=== PATIENT | female | born 1990 | race Caucasian/White ===

== ENCOUNTER 2022-02-25 11:20 | Inpatient (IN) | payer BC ==
[2022-02-25] MEDS ORDERED: OXYTOCIN 10 UNIT/ML 1 ML VIAL IM PRN (13:56)
[2022-02-25] MEDS ORDERED: LIDOCAINE 1% (PF) 10 MG/ML (30 ML SDV) SQ PRN (13:56)
[2022-02-25] MEDS ORDERED: TERBUTALINE 1 MG/ML VIAL SQ PRN (13:56)
[2022-02-25] MEDS ORDERED: METHYLERGONOVINE 0.2 MG/ML 1 ML AMP IM PRN (13:56)
[2022-02-25] MEDS ORDERED: CARBOPROST TROMETHAMINE 250 MCG/ML 1 ML AMP IM PRN (13:56)
[2022-02-25] MEDS ORDERED: LACTATED RINGERS 1,000 ML IV SCH (14:00)
[2022-02-25] MEDS ORDERED: OXYTOCIN 30 UNITS/500 ML NS 30 UNIT in SALINE 1 500ML.BAG IV SCH (14:00)
[2022-02-25 14:19] LABS: Basophils % (A) 0 %; Eosinophils % (A) 0 %; HCT 42.9 % (34.0-46.0); HGB 14.3 gm/dL (11.4-16.0); Lymphocytes # (A) 0.9 k/uL (1.0-4.8); Lymphocytes % (A) 7 %; MCH 31.8 pg (25.0-35.0); MCHC 33.4 g/dL (31.0-37.0); MCV 95.5 fL (80.0-100.0); Mean Platelet Volume 8.4; Monocytes # (A) 0.5 k/uL (0-1.0); Monocytes % (A) 4 %; Neutrophils # (A) 11.1 k/uL (1.3-7.7); Neutrophils % (A) 88 %; Platelet Count 167 k/uL (150-450); RBC 4.49 m/uL (3.80-5.40); WBC 12.6 k/uL (3.8-10.6)
[2022-02-25] MEDS: LACTATED RINGERS 1,000 ML IV SCH ×2 (14:23→14:52)
[2022-02-25] MEDS ORDERED: SODIUM CHLORIDE 0.9% 100 ML BAG ONE (14:34)
[2022-02-25] MEDS ORDERED: ROPIVACAINE 5MG/ML 20ML VIAL ONE (14:34)
[2022-02-25] MEDS ORDERED: fentaNYL (PF) 50 MCG/ML 5 ML AMP ONE (14:34)
--- NOTE | 2022-02-25 17:05 | P.HPOB ---
History of Present Illness H&P Date: 02/25/22 Chief Complaint: Contractions This is a 31-year-old female 1 para 0 with an estimated date of confinement of 02/20/2022, estimated gestational age of 40-5/7 weeks, who presents to labor and delivery with complaints of contractions that started yesterday morning and have become stronger and more regular. She denied any rupture of membranes. care has been with Dr. Chakraborty and has been uncomplicated per patient. labs: GC/Chlamydia/Trichomonas-negative Hepatitis B surface antigen-negative RPR-nonreactive Rubella-immune Blood type-O+ Antibody screen-negative HIV-nonreactive Hemoglobin-12.5 Toxoplasma screen-negative Random glucose-84 Obstetrical ultrasound-normal anatomy One hour Glucola-13 Group B streptococcus-negative Obstetrical history: Gynecologic history: No history of sexual transmitted diseases Social history: . Works part-time at the [employer]. Review of Systems Constitutional: Denies chills, Denies fever Eyes: denies blurred vision, denies pain Ears, nose, mouth and throat: Denies headache, Denies sore throat Cardiovascular: Denies chest pain, Denies shortness of breath Respiratory: Denies cough Gastrointestinal: Reports abdominal pain (Contractions) Genitourinary: Reports pelvic pain Musculoskeletal: Reports low back pain Integumentary: Denies pruritus, Denies rash Neurological: Denies numbness, Denies weakness Psychiatric: Reports anxiety Past Medical History Past Medical History: GERD/Reflux History of Any Multi-Drug Resistant Organisms: None Reported Past Surgical History: Cholecystectomy Additional Past Surgical History / Comment(s): wisdom teeth removed Past Anesthesia/Blood Transfusion Reactions: No Reported Reaction Past Psychological History: Anxiety Smoking Status: Never smoker Past Alcohol Use History: None Reported Past Drug Use History: None Reported - Past Family History Father Family Medical History: No Reported History Mother Family Medical History: Hypertension, Musculoskeletal Disorder Additional Family Medical History / Comment(s): muscular spasm disorder Medications and Allergies Home Medications Medication Instructions Recorded Confirmed Type Cetirizine HCl [Zyrtec] 10 mg PO DAILY 02/25/22 02/25/22 History FLUoxetine HCL [PROzac] 10 mg PO BID 02/25/22 02/25/22 History Pnv No.95/Ferrous Fum/Folic AC 1 each PO DAILY 02/25/22 02/25/22 History [ Multivitamin Tablet] Allergies Allergy/AdvReac Type Severity Reaction Status Date / Time No Known Allergies Allergy Verified 02/25/22 11:31 Exam Osteopathic Statement: *. No significant issues noted on an osteopathic structural exam other than those noted in the History and Physical/Consult. Vital Signs Temp Pulse Resp BP Pulse Ox 02/25/22 13:56 97.5 F L 90 16 120/66 99 02/25/22 11:31 97.7 F 97 16 128/75 99 Intake and Output 02/25/22 02/25/22 02/25/22 06:59 14:59 22:59 Intake Total 1999 Balance 1999 Intake: IV 1999 Other: # Voids 2 Weight 84.822 kg HEENT: Within normal limits Heart: Regular rate and rhythm Lungs: Clear to auscultation bilaterally Abdomen: Cervix: 7-8/70-80%/-2 station with bulging bag. Artificial rupture membranes is carried out with clear fluid noted. On arrival to triage she was initially 3- 1/2 cm and did make change to 4 cm over 1 hour and to 5 cm over 2 hours. Contractions: Every 2-3 minutes heart tones: Category 1 Extremities: Negative Homans Results Result Diagrams: 02/25/22 14:01 Abnormal Lab Results - Last 24 Hours (Table) 02/25/22 Range/Units 14:01 WBC 12.6 H (3.8-10.6) k/uL Neutrophils # 11.1 H (1.3-7.7) k/uL Lymphocytes # 0.9 L (1.0-4.8) k/uL Assessment and Plan (1) 40 weeks gestation of Current Visit: Yes Status: Acute Code(s): Z3A.40 - 40 WEEKS GESTATION OF SNOMED Code(s): 94196296 Plan: Admit for active labor. Expectant management. Epidural anesthesia. Oxytocin augmentation of labor if necessary.
--- NOTE | 2022-02-25 17:05 | P.MSEPDOC ---
Presenting Problems - Arrival Data Date of Arrival on Unit: 02/25/22 Time of Arrival on Unit: 11:34 Mode of Transport: Ambulatory - Complaint OB-Reason for Admission/Chief Complaint: Possible Onset of Labor Comment: ctx since 0200 5 min apart Medical History - Information : 1 Para: 0 Term: 0 : 0 Abortions: Spontaneous or Elective: 0 Number of Living Children: 0 - Gestational Age Gestational Age by VINCE (wks/days): 40 Weeks and 5 Days Review of Systems - Review of Systems Constitutional: No problems Breast: No problems ENT: No problems Cardiovascular: No problems Respiratory: No problems Gastrointestinal: No problems Genitourinary: No problems Musculoskeletal: No problems Neurological: No problems Skin: No problems Vital Signs - Temperature Temperature: 97.5 F Temperature Source: Temporal Artery Scan - Pulse Right Sitting Pulse Rate: 90 Pulse Assessment Method: Automatic Cuff - Respirations Respiratory Rate: 16 Oxygen Delivery Method: Room Air O2 Sat by Pulse Oximetry: 99 - Blood Pressure Right Arm Sitting Blood Pressure: 120/66 Blood Pressure Mean: 84 Blood Pressure Source: Automatic Cuff Medical Screen Scoring - Cervical Exam Dilation (cm): 4 Effacement (%): 80 Station: -2 Membranes: Intact - Uterine Contractions Frequency From (mins): 2 Frequency To (mins): 6 Duration From (seconds): 40 Duration To (seconds): 80 - Assessment - Baby A Baseline FHR: 130 Heart Rate - NICHD Category: Category I (Normal) Physician Notification - Physician Notified Physician Notified Date: 02/25/22 Physician Notified Time: 12:54 Physician: Meli Alva Order Received: Yes (monitor another hour and rcheck cervix) - Notification Comment Comment: [id number] Dr. Escoto called,made cervical change to 5cm, admit for labor, may have epidural Maternal Triage Index - Non-Urgent/Priority 4 Non-Urgent Priority 4: Yes Criteria Met for Priority 4: 40 5/7 contractions Disposition - Disposition OB Disposition: Admit, Triage I agree with the RN Medical Screening Exam: Yes Case reviewed; plan agreed upon as documented in EMR&OBIX.: Yes Diagnosis: ENCOUNTER FOR FULL-TERM UNCOMPLICATED DELIVERY
--- NOTE | 2022-02-25 23:26 | P.PROBDLV ---
Vaginal Delivery Note - . Vaginal Delivery Note: The patient progressed to complete dilation after oxytocin augmentation of labor and epidural anesthesia. Once reaching complete, she began pushing. That said came to a crown. With one further push, the 's head delivered across the perineum in a right occiput anterior lie followed by the anterior shoulder and nuchal right hand with one further push, the remainder of the easily delivered and was placed on mother's abdomen. Nose and mouth were bulb monroy ctioned. Cord was clamped and cut and infant was taken to warmer for evaluation. A viable male infant was noted with scores of 7 at 1 minute and 9 at 5 minutes and weight of 9 lbs. 0 oz. Placenta delivered shortly afterwards intact with a three-vessel cord. There was a large amount of clot that came out right after the placenta. Uterus initially contracted well after oxytocin was given and uterine massage was carried out. A gloved hand was placed within the endometrial cavity due to some increase in bleeding and several pieces of membrane and decidual-type tissue were removed. Uterus did firm up again at the lower uterine segment still felt slightly boggy. Several more passes with a gloved hand were placed into the endometrial cavity to remove blood clots and more decidual type tissue. Methergine 0.2 mg was given IM. Inspection of the perineum revealed a second-degree perineal laceration. This area was anesthetized with 1% lidocaine and then sutured with 3-0 and 2-0 Vicryl suture in the usual fashion. There was noted to be bilateral periurethral abrasions that were noted to be hemostatic. Estimated blood loss appeared to be approximately 600 mL's. Both mother and are in stable condition.
[2022-02-26] MEDS ORDERED: OXYTOCIN 30 UNITS/500 ML NS 30 UNIT in SALINE 1 500ML.BAG IV SCH (00:12)
[2022-02-26] MEDS ORDERED: diphenhydrAMINE 50 MG CAP PO PRN (00:12)
[2022-02-26] MEDS ORDERED: ZOLPIDEM 5 MG TAB PO PRN (00:12)
[2022-02-26] MEDS ORDERED: BENZOCAINE/MENTHOL SPRAY 1 GM/SPRAY AEROSOL TOPICAL PRN (00:12)
[2022-02-26] MEDS ORDERED: HYDROCORTISONE 2.5% RECTAL CREAM 30 GM TUBE RECTAL PRN (00:12)
[2022-02-26] MEDS ORDERED: diphenhydrAMINE 50 MG/ML 1 ML VIAL IVP PRN ×2 (00:12)
[2022-02-26] MEDS ORDERED: LANOLIN CREAM 5 GM TUBE TOPICAL PRN (00:12)
[2022-02-26] MEDS ORDERED: SIMETHICONE 80 MG CHEWABLE PO PRN (00:12)
[2022-02-26] MEDS ORDERED: diphenhydrAMINE 25 MG CAP PO PRN (00:12)
[2022-02-26] MEDS: IBUPROFEN 600 MG TAB PO PRN ×3 (00:56→20:10)
[2022-02-26] MEDS: ACETAMINOPHEN TAB 325 MG TAB PO PRN ×3 (04:43→17:40)
[2022-02-26 07:00] LABS: Basophils # (A) 0.1 k/uL (0-0.2); Basophils % (A) 0 %; Eosinophils % (A) 0 %; HCT 37.3 % (34.0-46.0); HGB 12.4 gm/dL (11.4-16.0); Lymphocytes # (A) 0.7 k/uL (1.0-4.8); Lymphocytes % (A) 4 %; MCH 31.7 pg (25.0-35.0); MCHC 33.3 g/dL (31.0-37.0); MCV 95.3 fL (80.0-100.0); Mean Platelet Volume 8.9; Monocytes # (A) 0.8 k/uL (0-1.0); Monocytes % (A) 4 %; Neutrophils # (A) 16.1 k/uL (1.3-7.7); Neutrophils % (A) 90 %; Platelet Count 164 k/uL (150-450); RBC 3.92 m/uL (3.80-5.40); RDW 13.6 % (11.5-15.5); WBC 17.8 k/uL (3.8-10.6)
--- NOTE | 2022-02-26 07:24 | P.PNOBGVD ---
Subjective - Subjective Principal diagnosis: S/P NVD PPD #1 Interval history: Pt seen and examined. Has not been able to void on her own yet due to vaginal swelling. Patient reports: Reports appetite normal, Reports pain well controlled, Reports ambulating normally [place]: doing well Objective - Latest Vital Signs Latest vital signs: Vital Signs Temp Pulse Resp BP Pulse Ox 02/26/22 04:00 98.6 F 72 16 98/60 02/26/22 01:20 90 16 123/69 02/26/22 00:42 104 H 16 100/69 02/26/22 00:20 95 16 98/56 02/26/22 00:05 90 16 102/59 02/25/22 23:50 104 H 16 100/69 02/25/22 23:35 93 16 103/62 02/25/22 23:20 98.0 F 101 H 16 109/65 02/25/22 17:05 97.5 F L 90 16 120/66 99 02/25/22 13:56 97.5 F L 90 16 120/66 99 02/25/22 11:31 97.7 F 97 16 128/75 99 Intake and Output 02/25/22 02/26/22 02/26/22 22:59 06:59 14:59 Intake Total 167 Output Total 800 1120 Balance -800 -953 Intake: Intake, IV Titration 167 Amount Oxytocin 30 Units/500 ml 167 Ns 30 unit In Saline 1 500ml.bag @ Per Protocol IV .Q0M [facility] Rx#:[id number] Output: Urine 800 300 Straight 300 Output, Quantitative 820 Blood Loss - Exam Lungs: bilateral: normal Chest: Normal S1, Normal S2 Extremities: Present: normal Abdomen: Present: normal appearance, soft Uterus: Present: normal, firm - Labs Labs: Abnormal Lab Results - Last 24 Hours (Table) 02/25/22 02/26/22 Range/Units 14:01 06:43 WBC 12.6 H 17.8 H (3.8-10.6) k/uL Neutrophils # 11.1 H 16.1 H (1.3-7.7) k/uL Lymphocytes # 0.9 L 0.7 L (1.0-4.8) k/uL Assessment and Plan (1) Status post normal vaginal delivery Current Visit: Yes Status: Acute Code(s): BKF7653 - SNOMED Code(s): 043368618 Plan: 1. continue pp care
[2022-02-26] MEDS: LORATADINE 10 MG TAB PO SCH (08:16)
[2022-02-26] MEDS: SENNOSIDES-DOCUSATE SODIUM 1 EACH TAB PO SCH ×2 (08:16→20:10)
[2022-02-26] MEDS: PRENATAL VIT-IRON-FOLIC ACID 1 EACH CAP PO SCH (08:16)
[2022-02-26] MEDS: FLUoxetine HCL 10 MG CAP PO SCH ×2 (08:16→21:06)
[2022-02-27] MEDS: IBUPROFEN 600 MG TAB PO PRN ×2 (05:52→12:37)
--- NOTE | 2022-02-27 07:20 | P.DS ---
Providers Date of admission: 02/25/22 13:46 Expected date of discharge: 02/27/22 Attending physician: Donna Chakraborty Primary care physician: Stated None - Discharge Diagnosis(es) (1) Status post normal vaginal delivery Current Visit: Yes Status: Acute Hospital Course: Patient presented in active labor. She underwent a normal vaginal delivery. course was uncomplicated. She denies nausea, vomiting, chest pain, shortness of breath or any calf pain. Patient will be discharged home day #1 in stable condition to follow-up with me in 6 weeks. Plan - Discharge Summary New Discharge Prescriptions: New Ibuprofen [Motrin] 600 mg PO Q6HR PRN #30 tab PRN Reason: Mild Pain (Scale 1 To 3) No Action FLUoxetine HCL [PROzac] 10 mg PO DAILY Cetirizine HCl [Zyrtec] 10 mg PO DAILY Pnv No.95/Ferrous Fum/Folic AC [ Multivitamin Tablet] 1 each PO DAILY Discharge Medication List Cetirizine HCl [Zyrtec] 10 mg PO DAILY 02/25/22 [History] FLUoxetine HCL [PROzac] 10 mg PO DAILY 02/25/22 [History] Pnv No.95/Ferrous Fum/Folic AC [ Multivitamin Tablet] 1 each PO DAILY 02/25/22 [History] Ibuprofen [Motrin] 600 mg PO Q6HR PRN #30 tab 02/27/22 [Rx] Follow up Appointment(s)/Referral(s): Donna Chakraborty DO [Doctor of Osteopathic Medicine] - 04/11/22 10:45 am Discharge Disposition: HOME SELF-CARE
[2022-02-27] MEDS: SENNOSIDES-DOCUSATE SODIUM 1 EACH TAB PO SCH (07:51)
[2022-02-27] MEDS: ACETAMINOPHEN TAB 325 MG TAB PO PRN ×3 (07:52→13:51)
[2022-02-27 08:43] VITALS: BP 109/65; PULSE 73; RESP 18; TEMP 97.4
[2022-02-27] MEDS: LORATADINE 10 MG TAB PO SCH (12:35)
[2022-02-27] MEDS: PRENATAL VIT-IRON-FOLIC ACID 1 EACH CAP PO SCH (12:35)
[2022-02-27] MEDS: FLUoxetine HCL 10 MG CAP PO SCH (12:35)
== END 2022-02-27 14:30 | disposition home or self-care (01) | DRG 807 ==
LOC: FBPOP 11:20 → 4FBP 13:46
PROVIDERS: ADMIT Obstetrics & Gynecology; ATTEND Obstetrics & Gynecology
PROC: 10E0XZZ Delivery of Products of Conception, External Approach (ICD-10-PCS; principal; 2022-02-25)
PROC: 0KQM0ZZ Repair Perineum Muscle, Open Approach (ICD-10-PCS; 2022-02-25)
PROC: 10907ZC Drainage of Amniotic Fluid, Therapeutic from Products of Conception, Via Natural or Artificial Opening (ICD-10-PCS; 2022-02-25)
PROC: 4A0HXCZ Measurement of Products of Conception, Cardiac Rate, External Approach (ICD-10-PCS; 2022-02-25)
PROC: 3E033VJ Introduction of Other Hormone into Peripheral Vein, Percutaneous Approach (ICD-10-PCS; 2022-02-25)
DX: O62.3 Precipitate labor (principal); Z37.0 Single live birth; O70.1 Second degree perineal laceration during delivery; F41.9 Anxiety disorder, unspecified; O99.62 Diseases of the digestive system complicating childbirth; K21.9 Gastro-esophageal reflux disease without esophagitis; O99.344 Other mental disorders complicating childbirth; Z3A.40 40 weeks gestation of pregnancy; Z79.899 Other long term (current) drug therapy; Z90.49 Acquired absence of other specified parts of digestive tract
CPT/HCPCS: 59025; 85025; 86850; 86900; 86901; 88307; 99213

== ENCOUNTER 2024-12-21 16:06 | Inpatient (IN) | payer BC ==
[2024-12-29] MEDS ORDERED: miSOPROStoL 200 MCG TAB RECTAL PRN (06:27)
[2024-12-29] MEDS ORDERED: TRANEXAMIC 1,000 MG/100ML-NACL 1,000 MG in EMPTY BAG 1 BAG IV PRN (06:27)
[2024-12-29] MEDS ORDERED: OXYTOCIN 10 UNIT/ML 1 ML VIAL IM PRN (06:27)
[2024-12-29] MEDS ORDERED: CARBOPROST TROMETHAMINE 250 MCG/ML 1 ML AMP IM PRN (06:27)
[2024-12-29] MEDS ORDERED: miSOPROStoL 200 MCG TAB PO PRN (06:27)
[2024-12-29] MEDS ORDERED: TERBUTALINE 1 MG/ML VIAL SQ PRN (06:27)
[2024-12-29] MEDS: LACTATED RINGERS 1,000 ML IV SCH (06:40)
[2024-12-29] MEDS: OXYTOCIN 30 UNITS/500 ML NS 30 UNIT in SALINE 1 500ML.BAG IV SCH (07:00)
[2024-12-29 07:25] LABS: Basophils % (A) 0 %; Eosinophils # (A) 0.1 k/uL (0-0.7); Eosinophils % (A) 1 %; HCT 39.1 % (34.0-46.0); HGB 12.7 gm/dL (11.4-16.0); Lymphocytes # (A) 1.5 k/uL (1.0-4.8); Lymphocytes % (A) 14 %; MCH 30.7 pg (25.0-35.0); MCHC 32.4 g/dL (31.0-37.0); MCV 94.9 fL (80.0-100.0); Mean Platelet Volume 8.3; Monocytes # (A) 0.5 k/uL (0-1.0); Monocytes % (A) 4 %; Neutrophils # (A) 8.4 k/uL (1.3-7.7); Neutrophils % (A) 79 %; Platelet Count 132 k/uL (150-450); RBC 4.12 m/uL (3.80-5.40); RDW 13.7 % (11.5-15.5); WBC 10.6 k/uL (3.8-10.6)
--- NOTE | 2024-12-29 08:06 | P.HPOB ---
History of Present Illness H&P Date: 12/29/24 Chief Complaint: induction of labor 34 year old presented at 41 weeks and 1 day. Her cervix is 2-3/80/-2. She is shelbi irregularly. heart tones category 1. Review of Systems All systems: negative Constitutional: Denies chills, Denies fever Eyes: denies blurred vision, denies pain Ears, nose, mouth and throat: Denies headache, Denies sore throat Cardiovascular: Denies chest pain, Denies shortness of breath Respiratory: Denies cough Gastrointestinal: Denies abdominal pain, Denies diarrhea, Denies nausea, Denies vomiting Genitourinary: Denies dysuria, Denies hematuria Musculoskeletal: Denies myalgias Integumentary: Denies pruritus, Denies rash Neurological: Denies numbness, Denies weakness Psychiatric: Denies anxiety, Denies depression Endocrine: Denies fatigue, Denies weight change Past Medical History Past Medical History: GERD/Reflux History of Any Multi-Drug Resistant Organisms: None Reported Past Surgical History: Cholecystectomy Additional Past Surgical History / Comment(s): wisdom teeth removed Past Anesthesia/Blood Transfusion Reactions: No Reported Reaction Past Psychological History: Anxiety, Depression Smoking Status: Never smoker Past Alcohol Use History: None Reported Past Drug Use History: None Reported - Past Family History Father Family Medical History: No Reported History Mother Family Medical History: Hypertension, Musculoskeletal Disorder Additional Family Medical History / Comment(s): muscular spasm disorder Medications and Allergies Home Medications Medication Instructions Recorded Confirmed Type Cetirizine HCl [Zyrtec] 10 mg PO DAILY 02/25/22 12/29/24 History FLUoxetine HCL [PROzac] 20 mg PO DAILY 02/25/22 12/29/24 History Pnv No.95/Ferrous Fum/Folic AC 1 each PO DAILY 02/25/22 12/29/24 History [ Multivitamin Tablet] Ergocalciferol [Vitamin D2 (1250 1 capsule PO DAILY 12/29/24 12/29/24 History Mcg = 08045 Iu)] Magnesium Oxide [Magnesium] 1 capsule PO DAILY 12/29/24 12/29/24 History Allergies Allergy/AdvReac Type Severity Reaction Status Date / Time No Known Allergies Allergy Verified 12/29/24 06:24 Exam Osteopathic Statement: *. No significant issues noted on an osteopathic structural exam other than those noted in the History and Physical/Consult. Vital Signs Temp Pulse Resp BP Pulse Ox 12/29/24 06:24 98.5 F 96 17 111/63 100 Intake and Output 12/28/24 12/29/24 12/29/24 22:59 06:59 14:59 Other: Weight 81.647 kg Heart: Regular rate and rhythm Lungs: Clear to auscultation bilaterally Abdomen: Soft, nontender Extremities: Negative Homans sign Results Result Diagrams: 12/29/24 06:46 Abnormal Lab Results - Last 24 Hours (Table) 12/29/24 Range/Units 06:46 Plt Count 132 L (150-450) k/uL Neutrophils # 8.4 H (1.3-7.7) k/uL Assessment and Plan (1) Encounter for induction of labor Current Visit: Yes Status: Acute Code(s): Z34.90 - ENCNTR FOR SUPRVSN OF NORMAL , UNSP, UNSP TRIMESTER SNOMED Code(s): 326256705 (2) Post term , 41 weeks Current Visit: Yes Status: Acute Code(s): O48.0 - POST-TERM ; Z3A.41 - 41 WEEKS GESTATION OF SNOMED Code(s): 65712165732266 Plan: 1. induction of labor with amniotomy and pitocin 2. anticipate normal vaginal delivery
[2024-12-29] MEDS: BUTORPHANOL 1 MG/ML 1 ML VIAL IV PRN (09:15)
[2024-12-29] MEDS ORDERED: SODIUM CHLORIDE 0.9% 250 ML BAG ONE (10:48)
[2024-12-29] MEDS ORDERED: fentaNYL (PF) 50 MCG/ML 5 ML AMP ONE (10:48)
[2024-12-29] MEDS ORDERED: ROPIVACAINE 5 MG/ML 30 ML VIAL ONE (10:48)
[2024-12-29] MEDS ORDERED: HYDROCORTISONE 2.5% RECTAL CREAM 30 GM TUBE RECTAL PRN (13:24)
[2024-12-29] MEDS ORDERED: diphenhydrAMINE 50 MG/ML 1 ML VIAL IVP PRN ×2 (13:24)
[2024-12-29] MEDS ORDERED: SIMETHICONE 80 MG CHEWABLE PO PRN (13:24)
[2024-12-29] MEDS ORDERED: ZOLPIDEM 5 MG TAB PO PRN (13:24)
[2024-12-29] MEDS ORDERED: diphenhydrAMINE 50 MG CAP PO PRN (13:24)
[2024-12-29] MEDS ORDERED: diphenhydrAMINE 25 MG CAP PO PRN (13:24)
[2024-12-29] MEDS ORDERED: BENZOCAINE/MENTHOL SPRAY 1 GM/SPRAY AEROSOL TOPICAL PRN (13:24)
[2024-12-29] MEDS ORDERED: LANOLIN CREAM 1 GM TUBE TOPICAL PRN (13:24)
[2024-12-29] MEDS: LIDOCAINE 0.5% (PF) 5 MG/ML (50 ML SDV) SQ PRN (13:27)
[2024-12-29] MEDS: METHYLERGONOVINE 0.2 MG/ML 1 ML AMP IM PRN (13:28)
[2024-12-29] MEDS ORDERED: OXYTOCIN 30 UNITS/500 ML NS 30 UNIT in SALINE 1 500ML.BAG IV SCH (13:30)
[2024-12-29 13:59] VITALS: RESP 16
[2024-12-29] MEDS: SENNOSIDES-DOCUSATE SODIUM 1 EACH TAB PO SCH (21:06)
[2024-12-29] MEDS: IBUPROFEN 800 MG TAB PO SCH (21:17)
[2024-12-30] MEDS: ACETAMINOPHEN TAB 500 MG TAB PO SCH (02:13)
[2024-12-30 06:51] LABS: Basophils # (A) 0.1 k/uL (0-0.2); Basophils % (A) 0 %; Eosinophils # (A) 0.1 k/uL (0-0.7); Eosinophils % (A) 1 %; HCT 36.2 % (34.0-46.0); HGB 11.5 gm/dL (11.4-16.0); Lymphocytes # (A) 1.8 k/uL (1.0-4.8); Lymphocytes % (A) 11 %; MCH 30.7 pg (25.0-35.0); MCHC 31.9 g/dL (31.0-37.0); MCV 96.2 fL (80.0-100.0); Mean Platelet Volume 8.6; Monocytes # (A) 0.9 k/uL (0-1.0); Monocytes % (A) 5 %; Neutrophils # (A) 13.7 k/uL (1.3-7.7); Neutrophils % (A) 82 %; Platelet Count 136 k/uL (150-450); RBC 3.76 m/uL (3.80-5.40); RDW 13.5 % (11.5-15.5); WBC 16.7 k/uL (3.8-10.6)
--- NOTE | 2024-12-30 08:19 | P.PROBDLV ---
Vaginal Delivery Note - . Vaginal Delivery Note: Date of Service: 12-29-2024 34 year old presented at 41 weeks and 1 day. Her cervix is 2-3/80/-2. She is shelbi irregularly. heart tones category 1. Pitocin was started and amniotomy performed at 7:23 AM, thin meconium fluid noted. The patient was quickly uncomfortable and did get an epidural. heart tones remained category 1. Cervix was completely dilated at 1258. Patient pushed, delivered a viable male infant over intact perineum under epidural anesthesia at 1305. Numbered OA, anterior shoulder delivered gentle downward guidance followed by posterior shoulder and rest of body. Nose and mouth bulb suction, clear clamped and cut, infant placed later's abdomen. Apgars 8, 9, weight 8 pounds 3 ounces. Placenta delivered spontaneously, intact three-vessel cord at 1310. Vagina, cervix, perineum were inspected. First-degree midline laceration was repaired with 3-0 Vicryl. Estimated blood loss 200 mL. Mother and baby in stable condition.
[2024-12-30 08:20] VITALS: BP 104/66; PULSE 61; TEMP 97.7
--- NOTE | 2024-12-30 08:21 | P.DS ---
Providers Date of admission: 12/29/24 06:11 Expected date of discharge: 12/30/24 Attending physician: Donna Chakraborty Primary care physician: Stated None - Discharge Diagnosis(es) (1) Encounter for induction of labor Current Visit: Yes Status: Resolved (2) Post term , 41 weeks Current Visit: Yes Status: Resolved (3) Status post normal vaginal delivery Current Visit: No Status: Acute Hospital Course: Presented for induction of labor. Patient underwent a normal vaginal delivery. course has been uneventful. She denies nausea, vomiting, chest pain, shortness of breath and calf pain. Patient will be discharged home day #1 in stable condition to follow-up with me in 6 weeks. Plan - Discharge Summary New Discharge Prescriptions: New Ibuprofen [Motrin] 800 mg PO Q8HR #30 tab No Action FLUoxetine HCL [PROzac] 20 mg PO DAILY Ergocalciferol [Vitamin D2 (1250 Mcg = 29985 Iu)] 1 capsule PO DAILY Magnesium Oxide [Magnesium] 1 capsule PO DAILY Cetirizine HCl [Zyrtec] 10 mg PO DAILY Pnv No.95/Ferrous Fum/Folic AC [ Multivitamin Tablet] 1 each PO DAILY Discharge Medication List Cetirizine HCl [Zyrtec] 10 mg PO DAILY 02/25/22 [History] FLUoxetine HCL [PROzac] 20 mg PO DAILY 02/25/22 [History] Pnv No.95/Ferrous Fum/Folic AC [ Multivitamin Tablet] 1 each PO DAILY 02/25/22 [History] Ergocalciferol [Vitamin D2 (1250 Mcg = 65553 Iu)] 1 capsule PO DAILY 12/29/24 [History] Magnesium Oxide [Magnesium] 1 capsule PO DAILY 12/29/24 [History] Ibuprofen [Motrin] 800 mg PO Q8HR #30 tab 12/30/24 [Rx] Follow up Appointment(s)/Referral(s): Donna Chakraborty DO [Doctor of Osteopathic Medicine] - 02/10/25 1:15 pm Discharge Disposition: HOME SELF-CARE
== END 2024-12-30 13:45 | disposition home or self-care (01) | DRG 807 ==
LOC: 4FBP 12-29 06:11
PROVIDERS: ADMIT Obstetrics & Gynecology; ATTEND Obstetrics & Gynecology
PROC: 10907ZC Drainage of Amniotic Fluid, Therapeutic from Products of Conception, Via Natural or Artificial Opening (ICD-10-PCS; principal; 2024-12-29)
PROC: 10E0XZZ Delivery of Products of Conception, External Approach (ICD-10-PCS; principal; 2024-12-29)
PROC: 0HQ9XZZ Repair Perineum Skin, External Approach (ICD-10-PCS; principal; 2024-12-29)
PROC: 3E033VJ Introduction of Other Hormone into Peripheral Vein, Percutaneous Approach (ICD-10-PCS; principal; 2024-12-29)
DX: O48.0 Post-term pregnancy (principal); Z37.0 Single live birth; O99.344 Other mental disorders complicating childbirth; F32.A Depression, unspecified; O70.0 First degree perineal laceration during delivery; O77.0 Labor and delivery complicated by meconium in amniotic fluid; F41.9 Anxiety disorder, unspecified; Z3A.41 41 weeks gestation of pregnancy; Z79.899 Other long term (current) drug therapy
CPT/HCPCS: 85025; 86850; 86900; 86901

== ENCOUNTER → 2025-01-07 | Outpatient (CLI) | payer BC ==
[2025-01-07 14:50] LABS: Basophils # (A) 0.06 X 10*3/uL (0.00-0.10); Basophils % (A) 0.7 %; Eosinophils # (A) 0.15 X 10*3/uL (0.04-0.35); Eosinophils % (A) 1.8 %; HCT 35.1 % (37.2-46.3); HGB 11.7 g/dL (12.0-15.0); Lymphocytes # (A) 1.08 X 10*3/uL (0.90-5.00); Lymphocytes % (A) 12.7 %; MCH 31.1 pg (27.0-32.0); MCHC 33.3 g/dL (32.0-37.0); MCV 93.4 FL (80.0-97.0); Monocytes # (A) 0.56 X 10*3/uL (0.20-1.00); Monocytes % (A) 6.6 %; NRBC Per 100 WBC 0 X 10*3/uL (0.00-0.01); Neutrophils # (A) 6.48 X 10*3/uL (1.80-7.70); Neutrophils % (A) 76.4 %; Platelet Count 292 X 10*3/uL (140-440); RBC 3.76 X 10*6/uL (4.10-5.20); RDW 12.6 % (11.5-14.5); WBC 8.48 X 10*3/uL (4.50-10.00)
== END | disposition home or self-care (01) ==
LOC: LABPAT 11:25
PROVIDERS: ATTEND Obstetrics & Gynecology
DX: Z01.812 Encounter for preprocedural laboratory examination (principal); O73.0 Retained placenta without hemorrhage
CPT/HCPCS: 85025

== ENCOUNTER 2025-01-08 11:03 | Day surgery (SDC) | payer BC ==
--- NOTE | 2025-01-08 07:57 | P.HPOB ---
History of Present Illness H&P Date: 01/08/25 Chief Complaint: retained placenta 34-year-old presents several days after vaginal delivery with manual removal of the placenta. Yesterday she had an ultrasound that showed a 4 cm piece of placenta still left inside. Patient has had some bleeding and intense cramping. She presents today for a D&C. Review of Systems All systems: negative Constitutional: Denies chills, Denies fever Eyes: denies blurred vision, denies pain Ears, nose, mouth and throat: Denies headache, Denies sore throat Cardiovascular: Denies chest pain, Denies shortness of breath Respiratory: Denies cough Gastrointestinal: Denies abdominal pain, Denies diarrhea, Denies nausea, Denies vomiting Genitourinary: Denies dysuria, Denies hematuria Musculoskeletal: Denies myalgias Integumentary: Denies pruritus, Denies rash Neurological: Denies numbness, Denies weakness Psychiatric: Denies anxiety, Denies depression Endocrine: Denies fatigue, Denies weight change Past Medical History Past Medical History: GERD/Reflux Additional Past Medical History / Comment(s): vag. del. 12/29 MPH, has retained placenta, having some vag. bleeding but not heavy per pt. History of Any Multi-Drug Resistant Organisms: None Reported Past Surgical History: Cholecystectomy Additional Past Surgical History / Comment(s): wisdom teeth removed Past Anesthesia/Blood Transfusion Reactions: No Reported Reaction Smoking Status: Never smoker - Past Family History Father Family Medical History: No Reported History Mother Family Medical History: Hypertension, Musculoskeletal Disorder Additional Family Medical History / Comment(s): muscular spasm disorder Medications and Allergies Home Medications Medication Instructions Recorded Confirmed Type Cetirizine HCl [Zyrtec] 10 mg PO DAILY 02/25/22 01/07/25 History FLUoxetine HCL [PROzac] 20 mg PO DAILY 02/25/22 01/07/25 History Pnv No.95/Ferrous Fum/Folic AC 1 each PO DAILY 02/25/22 01/07/25 History [ Multivitamin Tablet] Ergocalciferol [Vitamin D2 (1250 1 capsule PO DAILY 12/29/24 01/07/25 History Mcg = 45412 Iu)] Magnesium Oxide [Magnesium] 1 capsule PO DAILY 12/29/24 01/07/25 History Ibuprofen [Motrin] 800 mg PO Q8HR PRN 01/07/25 01/07/25 History Allergies Allergy/AdvReac Type Severity Reaction Status Date / Time No Known Allergies Allergy Verified 01/07/25 11:38 Exam Osteopathic Statement: *. No significant issues noted on an osteopathic structural exam other than those noted in the History and Physical/Consult. Heart: Regular rate and rhythm Lungs: Clear to auscultation bilaterally Abdomen: Soft, nontender Extremities: Negative Homans sign Assessment and Plan (1) Retained placenta Status: Acute Code(s): O73.0 - RETAINED PLACENTA WITHOUT HEMORRHAGE SNOMED Code(s): 112882496 Plan: 1. D&C
[~2025-01-08 11:03] MED LIST: Pre Op ABX Message 1 EACH MISC MISCELLANE ONE
[2025-01-08] MEDS: IV FLUID CONTINUATION 1,000 ML IV ONE (11:32)
[2025-01-08] MEDS: LACTATED RINGERS 1,000 ML BAG IV STA (11:46)
[2025-01-08] MEDS: DEXAMETHASONE SOD PHOSPHATE 4 MG/ML 1 ML VIAL IVP STA (11:51)
[2025-01-08] MEDS: ONDANSETRON 4 MG/2 ML VIAL IVP STA (11:52)
[2025-01-08] MEDS: FAMOTIDINE 20 MG/2 ML VIAL IV STA (11:53)
[2025-01-08] MEDS ORDERED: PROPOFOL 10 MG/ML 20 ML VIAL IV ONE (12:34)
[2025-01-08] MEDS ORDERED: METHYLERGONOVINE 0.2 MG/ML 1 ML AMP ONE (12:34)
[2025-01-08] MEDS ORDERED: fentaNYL (PF) 50 MCG/ML 2 ML AMP ONE (12:34)
[2025-01-08] MEDS ORDERED: LIDOCAINE 1% INJ 10MG/ML (20 ML MDV) ONE (12:34)
[2025-01-08] MEDS ORDERED: KETOROLAC 30 MG/ML 1 ML VIAL ONE (12:34)
[2025-01-08] MEDS ORDERED: MIDAZOLAM 2 MG/2 ML VIAL ONE (12:34)
--- NOTE | 2025-01-08 13:12 | P.OP ---
Date of Procedure: 01/08/25 Preoperative Diagnosis: retained placenta Postoperative Diagnosis: retained placenta Procedure(s) Performed: d&C Anesthesia: MAC Surgeon: Donna Chakraborty Estimated Blood Loss (ml): 100 IV fluids (ml): 500 Urine output (ml): 50 Pathology: other (placental tissue) Condition: stable Disposition: PACU Operative Findings: large amount of placental tissue. uterus enlarged, cervix dilated 1cm Description of Procedure: Patient was taken the operating room general anesthesia was obtained without difficulty. She is prepped draped normal sterile fashion in dorsal lithotomy position, legs placed in candycane stirrups. Bladder was drained of all urine. Weighted speculum placed in vagina the anterior lip of the cervix was grasped with single-tooth tenaculum. Cervix was found to be dilated already to 1 cm. Sharp curette was gently used to scoop out pieces of placenta, most of the placenta was up on the cornu of the right side. Ring forceps were also used to remove placental tissue. When all tissue was felt to be removed all instruments were then removed from the vagina. Patient was given Methergine 0.2 mg IM. Patient Toller procedure well. Sponge and instrument counts correct x 2. She was taken to recovery in stable condition.
[2025-01-08 13:26] VITALS: TEMP 98
[2025-01-08] MEDS: HYDROmorphone 0.5 MG/0.5 ML SYRINGE IVP PRN (13:54)
[2025-01-08 14:40] VITALS: BP 155/79; PULSE 54; RESP 18
== END 2025-01-08 15:36 | disposition home or self-care (01) ==
LOC: OR 11:03
PROVIDERS: ATTEND Obstetrics & Gynecology
DX: O73.0 Retained placenta without hemorrhage (principal); Z90.49 Acquired absence of other specified parts of digestive tract
CPT/HCPCS: 58120; 81025; 88305; J2250; J1100; J2210; J2405; J2003; J3010; J1885; J3490; J2704; J1171